=== PATIENT | female | born 1985 | race Caucasian/White ===

== ENCOUNTER 2016-10-04 06:20 | Emergency (ER) | payer SELFPAY ==
--- NOTE | 2016-10-04 08:34 | DIAGNOSTIC IMAGING REPORT ---
PROCEDURE: US SOFT TISSUE ANYWHERE INDICATION: Left hand pain and inflammation. TECHNIQUE: Gaona scale and color Doppler ultrasound. COMPARISON: None. FINDINGS: There is a hypoechoic area over the dorsum of the hand and thumb measuring 4.6 x 1.6 x 1.0 cm with internal echoes and hyperemia consistent with a phlegmon. No evidence of a foreign body. IMPRESSION: 1. Phlegmon over the dorsal aspect of the left hand and thumb.
--- NOTE | 2016-10-04 11:27 | ED ORDER SUMMARY ---
..... Patient: LUIS JACOB OrderSheet [facility] VisitID: [id number] [address] [place] [address] 30y, F Registration Date/Time: 10/04/2016 ORDER SHEET Weight: 63.1 kg (measured) Allergies: Penicillins GENERAL ORDERS: CBC w Diff Urgent (07:10 10/04/2016 Kaitlyn WREN) (Ack 7:16 ALawrence ER Tech1) (7:38 KHoerner) CMP Urgent (07:10 10/04/2016 Kaitlyn WREN) (Ack 7:16 ALawrence ER Tech1) (7:38 KHoerner) UA-Culture if indicated Urgent (07:10/04/2016 Kaitlyn WREN) (Ack 7:16 ALawrence ER Tech1) (8:13 KHoerner) Lactate, Serum Urgent (07:10 10/04/2016 Kaitlyn WREN) (Ack 7:16 ALawrence ER Tech1) (7:38 KHoerner) US Soft Tissue Anywhere (preg) () Urgent (07:11 10/04/2016 Kaitlyn WREN) (Ack 7:16 ALawrence ER Tech1) (7:39 KHoerner) Blood Culture (No) (N/A) Urgent (08:15 10/04/2016 Ivis R.N. verbal order read back to Kaitlyn WREN) (Ack 8:17 KHoerner) (8:44 JBoardley R.N.) Culture, Wound Surface (Finger) (swab) (L thumb) Urgent (08:16 10/04/2016 Kaitlyn WREN) (8:17 KHoerner) - (I have asked Jona LAROSE to weigh and have Jorge in pharmacy to calculate a one time vancomycin dose.) (11:12 10/04/2016 Kaitlyn WREN) (11:15 Ivis R.N.) MEDICATION ORDERS: IV FLUIDS: IV NS : initial bolus none -, then 200 mL/hr for 3h (NOW); Urgent (07:42 10/04/2016 Kaitlyn WREN) (Ack 7:43 JBoardley R.N.) (7:59 JBoardley R.N.) Cefazolin IV 2 gm/100mL (NOW) (07:42 10/04/2016 Kaitlyn WREN) (Ack 7:43 JBoardley R.N.) (8:44 JBoardley R.N.) Dilaudid IV 1 mg (HIGH ALERT MEDICATION, NOW) (08:23 10/04/2016 JBoardley R.N. verbal order read back to Kaitlyn WREN) (8:23 JBoardley R.N.) Zofran IV 4 mg (NOW) (08:23 10/04/2016 JBoardley R.N. verbal order read back to Kaitlyn WREN) (8:23 JBoardley R.N.) Dilaudid IV 0.5 mg (HIGH ALERT MEDICATION, NOW) (08:46 10/04/2016 JBoardley R.N. verbal order read back to Kaitlyn WREN) (8:47 JBoardley R.N.) Vancomycin IV per pharmacy calculation (NOW) (11:12 10/04/2016 Kaitlyn WREN) (Ack 11:17 JBoardley R.N.) (Cancelled: Other11:26 JBoardley R.N.) Vancomycin IV 1 gm/200mL (NOW) (11:26 10/04/2016 JBoardley R.N. verbal order read back to Kaitlyn WREN) (11:27 JBoardley R.N.) Dilaudid IV 0.5 mg (HIGH ALERT MEDICATION, NOW) (11:53 10/04/2016 JBoardley R.N. verbal order read back to Kaitlyn WREN) (11:54 JBoardley R.N.) Dilaudid IV 0.5 mg (HIGH ALERT MEDICATION, NOW) (11:54 10/04/2016 JBoardley R.N. verbal order read back to Kaitlyn WREN) (11:54 JBoardley R.N.) Dilaudid IV 0.5 mg (HIGH ALERT MEDICATION, NOW) (13:24 10/04/2016 JBoardley R.N. verbal order read back to Kaitlyn WREN) (13:25 JBoardley R.N.) ORDER SHEET NOTES: [Electronically signed by Jona Sepulveda R.N. (14:38 10/04/2016)] [Electronically signed by Jorge Fernandez MD (16:18 10/04/2016)] [Electronically locked/signed by Jona Sepulveda R.N. (14:38 10/04/2016)]
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
--- NOTE | 2016-10-04 11:27 | ED ORDER SUMMARY ---
..... Patient: LUIS JACOB OrderSheet [facility] VisitID: [id number] [address] [place] [address] 30y, F Registration Date/Time: 10/04/2016 ORDER SHEET Weight: 63.1 kg (measured) Allergies: Penicillins GENERAL ORDERS: CBC w Diff Urgent (07:10 10/04/2016 Kaitlyn WREN) (Ack 7:16 ALawrence ER Tech1) (7:38 KHoerner) CMP Urgent (07:10 10/04/2016 Kaitlyn WREN) (Ack 7:16 ALawrence ER Tech1) (7:38 KHoerner) UA-Culture if indicated Urgent (07:10/04/2016 Kaitlyn WREN) (Ack 7:16 ALawrence ER Tech1) (8:13 KHoerner) Lactate, Serum Urgent (07:10 10/04/2016 Kaitlyn WREN) (Ack 7:16 ALawrence ER Tech1) (7:38 KHoerner) US Soft Tissue Anywhere (preg) () Urgent (07:11 10/04/2016 Kaitlyn WREN) (Ack 7:16 ALawrence ER Tech1) (7:39 KHoerner) Blood Culture (No) (N/A) Urgent (08:15 10/04/2016 Ivis R.N. verbal order read back to Kaitlyn WREN) (Ack 8:17 KHoerner) (8:44 JBoardley R.N.) Culture, Wound Surface (Finger) (swab) (L thumb) Urgent (08:16 10/04/2016 Kaitlyn WREN) (8:17 KHoerner) - (I have asked Jona LAROSE to weigh and have Jorge in pharmacy to calculate a one time vancomycin dose.) (11:12 10/04/2016 Kaitlyn WREN) (11:15 Ivis R.N.) MEDICATION ORDERS: IV FLUIDS: IV NS : initial bolus none -, then 200 mL/hr for 3h (NOW); Urgent (07:42 10/04/2016 Kaitlyn WREN) (Ack 7:43 JBoardley R.N.) (7:59 JBoardley R.N.) Cefazolin IV 2 gm/100mL (NOW) (07:42 10/04/2016 Kaitlyn WREN) (Ack 7:43 JBoardley R.N.) (8:44 JBoardley R.N.) Dilaudid IV 1 mg (HIGH ALERT MEDICATION, NOW) (08:23 10/04/2016 JBoardley R.N. verbal order read back to Kaitlyn WREN) (8:23 JBoardley R.N.) Zofran IV 4 mg (NOW) (08:23 10/04/2016 JBoardley R.N. verbal order read back to Kaitlyn WREN) (8:23 JBoardley R.N.) Dilaudid IV 0.5 mg (HIGH ALERT MEDICATION, NOW) (08:46 10/04/2016 JBoardley R.N. verbal order read back to Kaitlyn WREN) (8:47 JBoardley R.N.) Vancomycin IV per pharmacy calculation (NOW) (11:12 10/04/2016 Kaitlyn WREN) (Ack 11:17 JBoardley R.N.) (Cancelled: Other11:26 JBoardley R.N.) Vancomycin IV 1 gm/200mL (NOW) (11:26 10/04/2016 JBoardley R.N. verbal order read back to Kaitlyn WREN) (11:27 JBoardley R.N.) Dilaudid IV 0.5 mg (HIGH ALERT MEDICATION, NOW) (11:53 10/04/2016 JBoardley R.N. verbal order read back to Kaitlyn WREN) (11:54 JBoardley R.N.) Dilaudid IV 0.5 mg (HIGH ALERT MEDICATION, NOW) (11:54 10/04/2016 JBoardley R.N. verbal order read back to Kaitlyn WREN) (11:54 JBoardley R.N.) Dilaudid IV 0.5 mg (HIGH ALERT MEDICATION, NOW) (13:24 10/04/2016 JBoardley R.N. verbal order read back to Kaitlyn WREN) (13:25 JBoardley R.N.) ORDER SHEET NOTES: [Electronically signed by Jona Sepulveda R.N. (14:38 10/04/2016)] [Electronically signed by Jorge Fernandez MD (16:18 10/04/2016)] [Electronically locked/signed by Jona Sepulveda R.N. (14:38 10/04/2016)]
--- NOTE | 2016-10-04 11:27 | ED CLINICAL REPORT ---
Clinical Report - Physicians/Mid Levels [facility] [address] [place] [address] 10/04/2016 6:20 Patient: BENITA JACOB Time Seen: 06:42. Arrived- By private vehicle. Historian- patient. HISTORY OF PRESENT ILLNESS Chief Complaint: Injury to the left thumb. The injury happened 6 days ago. (No injury). ( Ms. Jacob noticed a pimple on the extensor surface of her left thumb 4 days ago. She squeezed it and the swelling spread up the thumb to her thenar eminence. She was seen at [place] emergency department where the possibility of tynosynovitis was entertained Unfortunately Ms. Jacob eloped. She notes that the pain redness and swelling have increased. She is also but has not sought care). Patient is experiencing severe pain. No other injury. REVIEW OF SYSTEMS The patient has had swelling, and numbness. No tingling, weakness, foreign body, skin laceration or chills. No fever, sore throat, cough, difficulty breathing or pedal edema. No abdominal pain, urinary frequency or difficulty with urination. The patient has missed periods (Prenant, no care). All systems otherwise negative, except as recorded above. PAST HISTORY PCP: none 22 weeks . SOCIAL HISTORY History of heavy drug use s: heroin. Is not under influence in ED. ADDITIONAL NOTES The nursing notes have been reviewed. PHYSICAL EXAM Vital Signs: 10/04/2016 08:47 BP: 124/72. HR: 89. RR: 16. O2 saturation: 98%. Temp: 98.2 F. 10/04/2016 06:36 BP: 129/75. HR: 113. RR: 18. O2 saturation: 98%. Temp: 98 F. Mcgrath-Bolivar pain scale: 4/10. Appearance: Alert. Patient in moderate distress. Head: Head atraumatic. ENT: Pharynx normal. Neck: Neck supple. CVS: Normal heart rate and rhythm. Heart sounds normal. No cardiac murmur. Respiratory: No respiratory distress. Breath sounds normal. Chest nontender. Abdomen: No visible injury. Soft and nontender. Bowel sounds normal. Back: No tenderness. Normal inspection. Skin: Skin warm. Skin intact. Extremities: Left thumb: moderate erythema, tenderness and swelling of the dorsal, volar, radial and ulnar aspect, MCP joint, proximal phalanx, IP joint and distal phalanx. Limited movement secondary to pain (diminished flexion and extension) (Marked pain with passive flexion and extension of the L thumb). No ecchymosis or puncture wound. Not localized to the thumb tip or nail bed. No tenderness in other areas. No wrist injury. ( Many periperal IV track bocanegra). Neuro: No alteration in mental status. No motor deficit. No sensory deficit. LABS, X-RAYS, AND EKG Note - Special Studies: Name: Benita Jacob : 1985 MR#: [id number] Ordering Provider: PATRICIO TERRELL Exam(s): US SOFT TISSUE ANYWHERE Date of Exam: 10/04/2016 __ PROCEDURE: US SOFT TISSUE ANYWHERE INDICATION: Left hand pain and inflammation. TECHNIQUE: Gaona scale and color Doppler ultrasound. COMPARISON: None. FINDINGS: There is a hypoechoic area over the dorsum of the hand and thumb measuring 4.6 x 1.6 x 1.0 cm with internal echoes and hyperemia consistent with a phlegmon. No evidence of a foreign body. IMPRESSION: 1. Phlegmon over the dorsal aspect of the left hand and thumb. Electronically Final signed by:Migue Palumbo MD 10/04/2016 8:34:07 AM Technologist: JUN. Laboratory Tests: UA-Culture if indicated: (NELI: 10/04/2016 08:08) ( MsgRcvd 10/04/2016 08:45) IP Test Result Flag Units (Reference) URINE COLOR YELLOW URINE APPEARANCE CLEAR URINE GLUCOSE NEGATIVE (NEGATIVE) URINE KETONE 1+ (NEGATIVE) URINE SPECIFIC GRAVITY 1.025 (1.010-1.030) URINE PH 6.0 (5.0-8.0) URINE PROTEIN TRACE (NEGATIVE) URINE UROBILINOGEN 1.0 EU/dL (0.2-1.0) URINE NITRITE NEGATIVE (NEGATIVE) URINE BLOOD NEGATIVE (NEGATIVE) URINE LEUK ESTERASE NEGATIVE (NEGATIVE) CBC w Diff: (NELI: 10/04/2016 07:27) ( [facility] 10/04/2016 07:51) Final results Test Result Flag Units (Reference) WHITE BLOOD COUNT 19.1 H K/uL (4.5-11.5) RED BLOOD COUNT 3.96 L M/uL (4.00-5.20) HEMOGLOBIN 11.2 L gm/dL (12.0-16.0) HEMATOCRIT 33.7 L % (36.0-46.0) MEAN CELL VOLUME 85 fL (80-100) MEAN CORPUSCULAR HGB 28 pg (26-34) MEAN CORPUSCULAR HGB CONC 33 g/dL (31-37) RED CELL DISTRIBUTION WIDTH 14.2 % (11.6-14.8) PLATELET COUNT 319 K/uL (150-400) NEUTROPHIL % 80.4 H % (50-75) LYMPH % 11.3 L % (25-40) MONO % 6.2 % (3-14) EOSINOPHIL % 1.3 % (0-4) BASOPHIL % 0.8 % (0-2) Lactate, Serum: (NELI: 10/04/2016 07:27) ( [facility] 10/04/2016 07:56) Final results Test Result Flag Units (Reference) LACTIC ACID 0.6 mmol/L (0.4-2.0) CMP: (NELI: 10/04/2016 07:27) ( [facility] 10/04/2016 07:53) Final results Test Result Flag Units (Reference) GLUCOSE 82 mg/dL (70-110) BUN 9 mg/dL (7-18) CREATININE 0.5 L mg/dL (0.6-1.3) Estimated GFR >60 mL/min Estimated GFR- >60 mL/min Note: Persistent reduction over 3 months in eGFR<60 mL/min/1.73 m2 defines CKD. Patients with eGFR values>=60 mL/min/1.73 m2 may also have CKD if evidence ofpersistent proteinuria. Additional information may be foundat www.kidney.org. SODIUM 136 mmol/L (136-145) POTASSIUM 3.7 mmol/L (3.5-5.1) CHLORIDE 102 mmol/L (98-107) CARBON DIOXIDE 26 mmol/L (21-32) CALCIUM 8.3 L mg/dL (8.5-10.1) TOTAL PROTEIN 7.3 g/dL (6.4-8.2) ALBUMIN 2.4 L g/dL (3.3-5.0) BILIRUBIN, TOTAL 0.4 mg/dL (0.0-1.0) ALKALINE PHOSPHATASE 153 H U/L (46-116) AST (SGOT) 17 U/L (15-37) ALT (SGPT) 23 U/L (12-78) . PROGRESS AND PROCEDURES Course of Care: 07:14 10/04/16. Michelle of pharmacy - no vancomycin due to and potential du toxicity. Possible Cefazolin and daptomycin 08:17 10/04/16. Page to [facility] Ocampo Page to funeral planner - drug treatment. - not in house 08:24 10/04/16. Melissa - [facility] [place]. I don't do hands 08:50 10/04/16. Nereyda [facility], Eddie De La Torre, hand fellow. consulted. 09:09 10/04/16. Dr. Tyson, hand and plastic surgery, [facility] is paged. 09:27 10/04/16. No call back from Dr Tyson. Called Nereyda Morrow RN [facility]. She will page Dr Marisa Dawn 09:51 10/04/16. GILMER VINSON, - ortho Prov will accept in transfer. Dr Ashton paged for ID advice pending transfer. 10:57 10/04/16. Dr Ashton recommends Vanco as the safest option in . 11:11 10/04/16. I have asked Jona LAROSE to weigh and have Patricio in pharmacy to calculate a one time vancomycin dose. 11:13 10/04/16. Await bed assignment from [facility]. Dr Gilmer Vinson has accepted in transfer. I will make Dr Barbour aware of the plan and leave the chart open. 16:15 10/04/16. Patient has now been transferred and chart is locked. Disposition: Transferred. CLINICAL IMPRESSION LEFT THUMB TENOSYNOVITIS LEFT HAND CELLULITIS. 22 WEEK INTRAUTERINE ACTIVE HEROIN ADDICTION. (Electronically signed by Patricio Terrell MD 10/04/2016 16:18)
--- NOTE | 2016-10-04 11:27 | ED CLINICAL REPORT ---
Clinical Report - Physicians/Mid Levels [facility] [address] [place] [address] 10/04/2016 6:20 Patient: BENITA JACOB Time Seen: 06:42. Arrived- By private vehicle. Historian- patient. HISTORY OF PRESENT ILLNESS Chief Complaint: Injury to the left thumb. The injury happened 6 days ago. (No injury). ( Ms. Jacob noticed a pimple on the extensor surface of her left thumb 4 days ago. She squeezed it and the swelling spread up the thumb to her thenar eminence. She was seen at [place] emergency department where the possibility of tynosynovitis was entertained Unfortunately Ms. Jacob eloped. She notes that the pain redness and swelling have increased. She is also but has not sought care). Patient is experiencing severe pain. No other injury. REVIEW OF SYSTEMS The patient has had swelling, and numbness. No tingling, weakness, foreign body, skin laceration or chills. No fever, sore throat, cough, difficulty breathing or pedal edema. No abdominal pain, urinary frequency or difficulty with urination. The patient has missed periods (Prenant, no care). All systems otherwise negative, except as recorded above. PAST HISTORY PCP: none 22 weeks . SOCIAL HISTORY History of heavy drug use s: heroin. Is not under influence in ED. ADDITIONAL NOTES The nursing notes have been reviewed. PHYSICAL EXAM Vital Signs: 10/04/2016 08:47 BP: 124/72. HR: 89. RR: 16. O2 saturation: 98%. Temp: 98.2 F. 10/04/2016 06:36 BP: 129/75. HR: 113. RR: 18. O2 saturation: 98%. Temp: 98 F. Mcgrath-Bolivar pain scale: 4/10. Appearance: Alert. Patient in moderate distress. Head: Head atraumatic. ENT: Pharynx normal. Neck: Neck supple. CVS: Normal heart rate and rhythm. Heart sounds normal. No cardiac murmur. Respiratory: No respiratory distress. Breath sounds normal. Chest nontender. Abdomen: No visible injury. Soft and nontender. Bowel sounds normal. Back: No tenderness. Normal inspection. Skin: Skin warm. Skin intact. Extremities: Left thumb: moderate erythema, tenderness and swelling of the dorsal, volar, radial and ulnar aspect, MCP joint, proximal phalanx, IP joint and distal phalanx. Limited movement secondary to pain (diminished flexion and extension) (Marked pain with passive flexion and extension of the L thumb). No ecchymosis or puncture wound. Not localized to the thumb tip or nail bed. No tenderness in other areas. No wrist injury. ( Many periperal IV track bocanegra). Neuro: No alteration in mental status. No motor deficit. No sensory deficit. LABS, X-RAYS, AND EKG Note - Special Studies: Name: Benita Jacob : 1985 MR#: [id number] Ordering Provider: PATRICIO TERRELL Exam(s): US SOFT TISSUE ANYWHERE Date of Exam: 10/04/2016 __ PROCEDURE: US SOFT TISSUE ANYWHERE INDICATION: Left hand pain and inflammation. TECHNIQUE: Gaona scale and color Doppler ultrasound. COMPARISON: None. FINDINGS: There is a hypoechoic area over the dorsum of the hand and thumb measuring 4.6 x 1.6 x 1.0 cm with internal echoes and hyperemia consistent with a phlegmon. No evidence of a foreign body. IMPRESSION: 1. Phlegmon over the dorsal aspect of the left hand and thumb. Electronically Final signed by:Migue Palumbo MD 10/04/2016 8:34:07 AM Technologist: JUN. Laboratory Tests: UA-Culture if indicated: (NELI: 10/04/2016 08:08) ( MsgRcvd 10/04/2016 08:45) IP Test Result Flag Units (Reference) URINE COLOR YELLOW URINE APPEARANCE CLEAR URINE GLUCOSE NEGATIVE (NEGATIVE) URINE KETONE 1+ (NEGATIVE) URINE SPECIFIC GRAVITY 1.025 (1.010-1.030) URINE PH 6.0 (5.0-8.0) URINE PROTEIN TRACE (NEGATIVE) URINE UROBILINOGEN 1.0 EU/dL (0.2-1.0) URINE NITRITE NEGATIVE (NEGATIVE) URINE BLOOD NEGATIVE (NEGATIVE) URINE LEUK ESTERASE NEGATIVE (NEGATIVE) CBC w Diff: (NELI: 10/04/2016 07:27) ( [facility] 10/04/2016 07:51) Final results Test Result Flag Units (Reference) WHITE BLOOD COUNT 19.1 H K/uL (4.5-11.5) RED BLOOD COUNT 3.96 L M/uL (4.00-5.20) HEMOGLOBIN 11.2 L gm/dL (12.0-16.0) HEMATOCRIT 33.7 L % (36.0-46.0) MEAN CELL VOLUME 85 fL (80-100) MEAN CORPUSCULAR HGB 28 pg (26-34) MEAN CORPUSCULAR HGB CONC 33 g/dL (31-37) RED CELL DISTRIBUTION WIDTH 14.2 % (11.6-14.8) PLATELET COUNT 319 K/uL (150-400) NEUTROPHIL % 80.4 H % (50-75) LYMPH % 11.3 L % (25-40) MONO % 6.2 % (3-14) EOSINOPHIL % 1.3 % (0-4) BASOPHIL % 0.8 % (0-2) Lactate, Serum: (NELI: 10/04/2016 07:27) ( [facility] 10/04/2016 07:56) Final results Test Result Flag Units (Reference) LACTIC ACID 0.6 mmol/L (0.4-2.0) CMP: (NELI: 10/04/2016 07:27) ( [facility] 10/04/2016 07:53) Final results Test Result Flag Units (Reference) GLUCOSE 82 mg/dL (70-110) BUN 9 mg/dL (7-18) CREATININE 0.5 L mg/dL (0.6-1.3) Estimated GFR >60 mL/min Estimated GFR- >60 mL/min Note: Persistent reduction over 3 months in eGFR<60 mL/min/1.73 m2 defines CKD. Patients with eGFR values>=60 mL/min/1.73 m2 may also have CKD if evidence ofpersistent proteinuria. Additional information may be foundat www.kidney.org. SODIUM 136 mmol/L (136-145) POTASSIUM 3.7 mmol/L (3.5-5.1) CHLORIDE 102 mmol/L (98-107) CARBON DIOXIDE 26 mmol/L (21-32) CALCIUM 8.3 L mg/dL (8.5-10.1) TOTAL PROTEIN 7.3 g/dL (6.4-8.2) ALBUMIN 2.4 L g/dL (3.3-5.0) BILIRUBIN, TOTAL 0.4 mg/dL (0.0-1.0) ALKALINE PHOSPHATASE 153 H U/L (46-116) AST (SGOT) 17 U/L (15-37) ALT (SGPT) 23 U/L (12-78) . PROGRESS AND PROCEDURES Course of Care: 07:14 10/04/16. Michelle of pharmacy - no vancomycin due to and potential du toxicity. Possible Cefazolin and daptomycin 08:17 10/04/16. Page to Fly Ocampo Page to management planner - drug treatment. - not in house 08:24 10/04/16. Melissa - [facility]. I don't do hands 08:50 10/04/16. [facility], hand fellow. consulted. 09:09 10/04/16. Dr. Tyson, hand and plastic surgery, [facility] is paged. 09:27 10/04/16. No call back from Dr Tyson. Called Nereyda Morrow RN [facility]. She will page Dr Marisa Dawn 09:51 10/04/16. GILMER VINSON, - ortho Prov will accept in transfer. Dr Ashton paged for ID advice pending transfer. 10:57 10/04/16. Dr Ashton recommends Vanco as the safest option in . 11:11 10/04/16. I have asked Jona LAROSE to weigh and have Patricio in pharmacy to calculate a one time vancomycin dose. 11:13 10/04/16. Await bed assignment from [facility]. Dr Gilmer Vinson has accepted in transfer. I will make Dr Barbour aware of the plan and leave the chart open. 16:15 10/04/16. Patient has now been transferred and chart is locked. Disposition: Transferred. CLINICAL IMPRESSION LEFT THUMB TENOSYNOVITIS LEFT HAND CELLULITIS. 22 WEEK INTRAUTERINE ACTIVE HEROIN ADDICTION. (Electronically signed by Patricio Terrell MD 10/04/2016 16:18)
--- NOTE | 2016-10-04 16:18 | ED DISCHARGE INSTRUCTIONS ---
Patient: LUIS JACOB General Instructions [facility] VisitID: [id number] [address] [place] [address] 30y, F Registration Date/Time: 10/04/2016 LEFT THUMB TENOSYNOVITIS LEFT HAND CELLULITIS. 22 WEEK INTRAUTERINE ACTIVE HEROIN ADDICTION. (Electronically signed by Jorge Fernandez MD 10/04/2016 16:18)
--- NOTE | 2016-10-04 16:18 | ED DISCHARGE INSTRUCTIONS ---
Patient: LUIS JACOB General Instructions VisitID: [id number] [address] [place] [address] 30y, F Registration Date/Time: 10/04/2016 LEFT THUMB TENOSYNOVITIS LEFT HAND CELLULITIS. 22 WEEK INTRAUTERINE ACTIVE HEROIN ADDICTION. (Electronically signed by Jorge Fernandez MD 10/04/2016 16:18)
--- NOTE | 2016-10-04 16:18 | ED MED RECONCILIATION SUMMARY ---
Patient: LUIS JACOB Medication Reconciliation Report [facility] VisitID: [id number] [address] [place] [address] 30y, F Registration Date/Time: 10/04/2016 Weight: 63.1 kg Height/Length: 62 in. BMI: 25.5 ALLERGIES: Penicillins The patient's Home Medications are listed below: THE FOLLOWING MEDICATIONS NEED TO BE RECONCILED: Plus Iron Oral The source(s) of the original Home Medication information: Not obtained. The following Medications were given to the patient in the Emergency Department: IV NS IV Fluids bolus 0, then 200 mL/hr, administered: 10/04/2016 7:59:00 AM Dilaudid [IVP] IVP 1 mg, administered: 10/04/2016 8:18:00 AM Zofran [IVP] IVP 4 mg, administered: 10/04/2016 8:18:00 AM Cefazolin [IVPB] IVPB bolus 0, then 2 gm 200 mL/hr, administered: 10/04/2016 8:43:00 AM Dilaudid [IVP] IVP 0.5 mg, administered: 10/04/2016 8:47:00 AM Vancomycin [IVPB] IVPB bolus 0, then 1 gm 125 mL/hr, administered: 10/04/2016 11:27:00 AM Dilaudid [IVP] IVP 0.5 mg, administered: 10/04/2016 11:54:00 AM Dilaudid [IVP] IVP 0.5 mg, administered: 10/04/2016 11:54:00 AM Dilaudid [IVP] IVP 0.5 mg, administered: 10/04/2016 1:25:00 PM The following Medications were prescribed to the patient: None.
--- NOTE | 2016-10-04 16:18 | ED MAR SUMMARY ---
..... Medication Administration Record [facility] [address] [place] [address] Patient: LUIS JACOB Visit ID: [id number] 30y, F Weight: 63.1 kg Height/Length: 62 in BMI: 25.5 ALLERGIES: Penicillins Start 07:59 10/04/2016 Jona Sepulveda R.N., Stop 12:37 10/04/2016 Jona Sepulveda R.N. Medication Administered: IV NS (SALINE), Dose: IV Fluids over 3 hour(s), Rate: 200 mL/hr, Dispensed: 1000 mL bag, Site: #1 right upper arm. Medication Ordered: IV NS : initial bolus none -, then 200 mL/hr for 3h (NOW); Urgent. Given 08:18 10/04/2016 Jona Sepulveda R.N. Medication Administered: DILAUDID [IVP] (HYDROMORPHONE HCL PF), Dose: 1 mg IVP over 2 minute(s), Site: #1 right upper arm. Medication Ordered: Dilaudid IV 1 mg (HIGH ALERT MEDICATION, NOW). Given 08:18 10/04/2016 Jona Sepulveda R.N. Medication Administered: ZOFRAN [IVP] (ONDANSETRON HCL), Dose: 4 mg IVP over 2 minute(s), Site: #1 right upper arm. Medication Ordered: Zofran IV 4 mg (NOW). Start 08:43 10/04/2016 Jona Sepulveda R.N., Stop 09:09 10/04/2016 Jona Sepulveda R.N. Medication Administered: CEFAZOLIN [IVPB] (CEFAZOLIN SODIUM), Dose: 2 gm IVPB over 30 minute(s), Rate: 200 mL/hr, Dispensed: 100 mL bag, Site: #1 right upper arm. Medication Ordered: Cefazolin IV 2 gm/100mL (NOW). Given 08:47 10/04/2016 Jona Sepulveda R.N. Medication Administered: DILAUDID [IVP] (HYDROMORPHONE HCL PF), Dose: 0.5 mg IVP over 2 minute(s), Site: #1 right upper arm. Medication Ordered: Dilaudid IV 0.5 mg (HIGH ALERT MEDICATION, NOW). Start 11:27 10/04/2016 Jona Sepulveda R.N. Medication Administered: VANCOMYCIN [IVPB], Dose: 1 gm IVPB over 2 hour(s), Rate: 125 mL/hr, Dispensed: 250 mL bag, Site: #1 right upper arm. Medication Ordered: Vancomycin IV 1 gm/200mL (NOW). Given 11:54 10/04/2016 Jona Sepulveda R.N. Medication Administered: DILAUDID [IVP] (HYDROMORPHONE HCL PF), Dose: 0.5 mg IVP over 2 minute(s), Site: #1 right upper arm. Medication Ordered: Dilaudid IV 0.5 mg (HIGH ALERT MEDICATION, NOW). Given 11:54 10/04/2016 Jona Sepulveda R.N. Medication Administered: DILAUDID [IVP] (HYDROMORPHONE HCL PF), Dose: 0.5 mg IVP over 2 minute(s), Site: #1 right upper arm. Medication Ordered: Dilaudid IV 0.5 mg (HIGH ALERT MEDICATION, NOW). Given 13:25 10/04/2016 Jona Sepulveda R.N. Medication Administered: DILAUDID [IVP] (HYDROMORPHONE HCL PF), Dose: 0.5 mg IVP over 2 minute(s), Site: #1. Medication Ordered: Dilaudid IV 0.5 mg (HIGH ALERT MEDICATION, NOW).
--- NOTE | 2016-10-04 16:18 | ED MED RECONCILIATION SUMMARY ---
Patient: LUIS JACOB Medication Reconciliation Report [facility] VisitID: [id number] [address] [place] [address] 30y, F Registration Date/Time: 10/04/2016 Weight: 63.1 kg Height/Length: 62 in. BMI: 25.5 ALLERGIES: Penicillins The patient's Home Medications are listed below: THE FOLLOWING MEDICATIONS NEED TO BE RECONCILED: Plus Iron Oral The source(s) of the original Home Medication information: Not obtained. The following Medications were given to the patient in the Emergency Department: IV NS IV Fluids bolus 0, then 200 mL/hr, administered: 10/04/2016 7:59:00 AM Dilaudid [IVP] IVP 1 mg, administered: 10/04/2016 8:18:00 AM Zofran [IVP] IVP 4 mg, administered: 10/04/2016 8:18:00 AM Cefazolin [IVPB] IVPB bolus 0, then 2 gm 200 mL/hr, administered: 10/04/2016 8:43:00 AM Dilaudid [IVP] IVP 0.5 mg, administered: 10/04/2016 8:47:00 AM Vancomycin [IVPB] IVPB bolus 0, then 1 gm 125 mL/hr, administered: 10/04/2016 11:27:00 AM Dilaudid [IVP] IVP 0.5 mg, administered: 10/04/2016 11:54:00 AM Dilaudid [IVP] IVP 0.5 mg, administered: 10/04/2016 11:54:00 AM Dilaudid [IVP] IVP 0.5 mg, administered: 10/04/2016 1:25:00 PM The following Medications were prescribed to the patient: None.
--- NOTE | 2016-10-04 16:18 | ED MAR SUMMARY ---
..... Medication Administration Record [facility] [address] [place] [address] Patient: LUIS JACOB Visit ID: [id number] 30y, F Weight: 63.1 kg Height/Length: 62 in BMI: 25.5 ALLERGIES: Penicillins Start 07:59 10/04/2016 Jona Sepulveda R.N., Stop 12:37 10/04/2016 Jona Sepulveda R.N. Medication Administered: IV NS (SALINE), Dose: IV Fluids over 3 hour(s), Rate: 200 mL/hr, Dispensed: 1000 mL bag, Site: #1 right upper arm. Medication Ordered: IV NS : initial bolus none -, then 200 mL/hr for 3h (NOW); Urgent. Given 08:18 10/04/2016 Jona Sepulveda R.N. Medication Administered: DILAUDID [IVP] (HYDROMORPHONE HCL PF), Dose: 1 mg IVP over 2 minute(s), Site: #1 right upper arm. Medication Ordered: Dilaudid IV 1 mg (HIGH ALERT MEDICATION, NOW). Given 08:18 10/04/2016 Jona Sepulveda R.N. Medication Administered: ZOFRAN [IVP] (ONDANSETRON HCL), Dose: 4 mg IVP over 2 minute(s), Site: #1 right upper arm. Medication Ordered: Zofran IV 4 mg (NOW). Start 08:43 10/04/2016 Jona Sepulveda R.N., Stop 09:09 10/04/2016 Jona Sepulveda R.N. Medication Administered: CEFAZOLIN [IVPB] (CEFAZOLIN SODIUM), Dose: 2 gm IVPB over 30 minute(s), Rate: 200 mL/hr, Dispensed: 100 mL bag, Site: #1 right upper arm. Medication Ordered: Cefazolin IV 2 gm/100mL (NOW). Given 08:47 10/04/2016 Jona Sepulveda R.N. Medication Administered: DILAUDID [IVP] (HYDROMORPHONE HCL PF), Dose: 0.5 mg IVP over 2 minute(s), Site: #1 right upper arm. Medication Ordered: Dilaudid IV 0.5 mg (HIGH ALERT MEDICATION, NOW). Start 11:27 10/04/2016 Jona Sepulveda R.N. Medication Administered: VANCOMYCIN [IVPB], Dose: 1 gm IVPB over 2 hour(s), Rate: 125 mL/hr, Dispensed: 250 mL bag, Site: #1 right upper arm. Medication Ordered: Vancomycin IV 1 gm/200mL (NOW). Given 11:54 10/04/2016 Jona Sepulveda R.N. Medication Administered: DILAUDID [IVP] (HYDROMORPHONE HCL PF), Dose: 0.5 mg IVP over 2 minute(s), Site: #1 right upper arm. Medication Ordered: Dilaudid IV 0.5 mg (HIGH ALERT MEDICATION, NOW). Given 11:54 10/04/2016 Jona Sepulveda R.N. Medication Administered: DILAUDID [IVP] (HYDROMORPHONE HCL PF), Dose: 0.5 mg IVP over 2 minute(s), Site: #1 right upper arm. Medication Ordered: Dilaudid IV 0.5 mg (HIGH ALERT MEDICATION, NOW). Given 13:25 10/04/2016 Jona Sepulveda R.N. Medication Administered: DILAUDID [IVP] (HYDROMORPHONE HCL PF), Dose: 0.5 mg IVP over 2 minute(s), Site: #1. Medication Ordered: Dilaudid IV 0.5 mg (HIGH ALERT MEDICATION, NOW).
== END 2016-10-04 13:35 | disposition short-term general hospital (02) ==
LOC: ED SRH 06:20
DX: M65.842 Other synovitis and tenosynovitis, left hand (principal); L03.114 Cellulitis of left upper limb; O26.892 Other specified pregnancy related conditions, second trimester; F11.20 Opioid dependence, uncomplicated; F17.210 Nicotine dependence, cigarettes, uncomplicated
CPT/HCPCS: 90004; 90065; 90070; 90074; 90100; 90131; 90309; 91672; 92031; 95059